=== PATIENT | female | born 1995 | race African-American/Black ===

== ENCOUNTER → 2020-11-09 | Outpatient (CLI) | payer BC ==
--- NOTE | 2020-11-09 09:53 | KCIC ---
Abdominal ultrasound without comparison for abdominal discomfort. TECHNIQUE AND FINDINGS: The liver is normal in size, contour, and echogenicity. No focal parenchymal abnormalities. No intra or extrahepatic biliary ductal dilatation. Common bile duct is normal in diam eter at 2 mm. This was portions the pancreas are normal. Gallbladder is fluid distended and free of a ny shadowing stones or sludge. No sonographic Ambrose's sign was elicited. The aorta is nonaneurysmal. IVC is patent. The right kidney measures 8.7 x 5.1 cm and the left measures 9.4 x 5.9 cm. No hydrone phrosis or significant parenchymal abnormality involving either kidney. The spleen measures 10.4 cm a nd is normal in appearance. No evidence of ascites. Impression: 1. No sonographically discernible acute abdominal abnormality. Electronically signed by: Brannon Peralta MD (11/09/2020 9:51 AM) [id number]
== END ==
LOC: KCIC US 07:59
PROVIDERS: ATTEND Family Medicine
DX: R10.9 Unspecified abdominal pain (principal)
CPT/HCPCS: 76700